=== PATIENT | male | born 1930 | race Caucasian/White ===

== ENCOUNTER → 2016-09-07 | Outpatient (CLI) | payer MEDICARE, BC ==
[~2016-09-07] MED LIST: ALEVE 220MG220 MG PO; ALMACONE 360 M360 ML PO; AMOXICILLIN 8751 TAB PO; ASPIR-LOW81 MG PO; ASPIRIN 81M81 MG/TA2 PO; BETAMETHASONE D15 G1 TP; CLOPIDOGREL PO; COUMADIN 22.5 MG/TAB PO; COUMADIN 5MG5 MG/TAB PO; COUMADIN PO; DULCOLAX S10 MG/SUPP RC; GOOD NEIGH1200 MG/15 PO; IMODIUM 2MG CAPS2 MG PO; LASIX 40MG TABL40 MG PO; LIPITOR20 MG PO; LIPITOR40 MG PO; MEDROL 4MG DOSPA4 MG PO; METOPROLOL PO; MIRALAX PA17 GM/Dose PO; NORCO 325 MG-51 TAB PO; PAXIL 10MG10 MG PO; REMERON 15M15 MG/TA1 PO; RT ADVAIR 228 DISKUS IH; TAMIFLU 75MG75 MG PO; TOPROL XL 50MG50 MG PO; TYLENOL 325MG325 MG PO; TYLENOL SU650 MG/SUP RC; ULTRAM 50MG TAB50 MG PO; ZOLOFT 100MG100 MG PO
== END ==
LOC: ZCOL.LAB 15:30
DX: R06.02 Shortness of breath (principal)

== ENCOUNTER 2017-05-03 05:47 | Observation (INO) | payer MEDICARE, BC ==
[~2017-05-03] VITALS: Ht 188 cm; Wt 112.5 kg
[~2017-05-03 05:47] MED LIST changes: -ALMACONE 360 M360 ML PO; -BETAMETHASONE D15 G1 TP; -DULCOLAX S10 MG/SUPP RC; -GOOD NEIGH1200 MG/15 PO; -IMODIUM 2MG CAPS2 MG PO; -LASIX 40MG TABL40 MG PO; -MEDROL 4MG DOSPA4 MG PO; -MIRALAX PA17 GM/Dose PO; -RT ADVAIR 228 DISKUS IH; -TYLENOL SU650 MG/SUP RC
[2017-05-03 06:19] LABS: BASO # 0.1 (0.0-0.2); BASO % 0.6 % (0.0-2.0); EOS # 0.1 (0.0-0.7); EOS % 1.2 % (0-4.0); GRAN # 6.4 (1.4-6.5); HEMATOCRIT 43.1 % (42.0-52.0); HEMOGLOBIN 14.2 g/dl (13.5-18.0); LYMPH # 1.2 (1.2-3.4); LYMPH % 14.2 % (20.0-51.0); MEAN CELL VOLUME 94 fl (80.0-100.0); MEAN CORPUSCULAR HEMOGLOBIN 31 pg (27.0-31.0); MEAN CORPUSCULAR HGB CONC 33 g/dl (33.0-37.0); MEAN PLATELET VOLUME 9.8 fl (7.4-10.4); MONO # 0.8 (0.1-0.6); MONO % 9.7 % (1.7-9.3); PLATELET COUNT 145 K/mm3 (130-400); WHITE BLOOD COUNT 8.7 K/mm3 (4.8-10.8)
[2017-05-03 06:28] LABS: ALBUMIN 3.9 gm/dL (3.5-5.0); BILIRUBIN,TOTAL 2.4 mg/dL (0.0-1.0); CALCIUM 8.9 mg/dL (8.4-10.2); CREATININE, serum 1.29 mg/dL (0.66-1.25); POTASSIUM 4.6 mmol/L (3.4-5.0); TOTAL PROTEIN 6.8 gm/dL (6.4-8.2)
[2017-05-03 06:40] LABS: TROPONIN-I 0.021 ng/mL (0.000-0.034)
[2017-05-03 07:02] LABS: PROTHROMBIN TIME 23.1 SECONDS (9.7-12.8)
[2017-05-03] MEDS ORDERED: TOPROL XL 50MG50 MG PO (07:15)
[2017-05-03] MEDS ORDERED: LIPITOR20 MG PO (07:16)
[2017-05-03] MEDS ORDERED: COUMADIN 5MG5 MG/TAB PO (07:18)
[2017-05-03] MEDS ORDERED: COUMADIN 22.5 MG/TAB PO (07:19)
[2017-05-03] MEDS ORDERED: LASIX 40MG TABL40 MG PO (07:20)
[2017-05-03] MEDS ORDERED: REMERON 15M15 MG/TA1 PO (07:21)
[2017-05-03] MEDS ORDERED: ZOLOFT 100MG100 MG PO (07:21)
[2017-05-03] MEDS ORDERED: BETAMETHASONE D15 G1 TP (07:22)
[2017-05-03] MEDS ORDERED: GOOD NEIGH1200 MG/15 PO (09:13)
[2017-05-03] MEDS ORDERED: ALMACONE 360 M360 ML PO (09:13)
[2017-05-03] MEDS ORDERED: TYLENOL SU650 MG/SUP RC (09:14)
[2017-05-03] MEDS ORDERED: DULCOLAX S10 MG/SUPP RC (09:14)
[2017-05-03] MEDS ORDERED: MIRALAX PA17 GM/Dose PO (09:15)
[2017-05-03] MEDS ORDERED: TYLENOL 325MG325 MG PO (09:15)
[2017-05-03] MEDS ORDERED: IMODIUM 2MG CAPS2 MG PO (09:16)
[2017-05-03 11:24] VITALS: BP 117/66; PULSE 80; TEMP 98
[2017-05-03 15:36] VITALS: BP 106/58; PULSE 59; TEMP 98.1
[2017-05-03 15:40] VITALS: BP 106/58; PULSE 61; TEMP 98.1
[2017-05-03 17:07] LABS: ARTERIAL BLD GAS TCO2 CT 25.9; ARTERIAL BLOOD GAS BASE EXCESS 0.3 (-2-2); ARTERIAL BLOOD GAS HCO3 24.7 meq/L (22-26); ARTERIAL BLOOD GAS PHT 7.42 C (7.35-7.45); ARTERIAL BLOOD GAS PO2 61.8 mmHg (80-100); ARTERIAL BLOOD GAS PO2T 61.8 (80-100); ARTERIAL BLOOD GAS pH 7.42 (7.35-7.45); OXYHEMOGLOBIN 90.5 %
[2017-05-03 17:08] LABS: ATS? YES
[2017-05-03 20:37] VITALS: BP 123/53; PULSE 83; TEMP 98
[2017-05-03 22:42] VITALS: BP 96/52; PULSE 69; TEMP 97.8
[2017-05-04 03:47] VITALS: BP 109/53; PULSE 64; TEMP 98.6
[2017-05-04 06:34] LABS: BASO % 0.3 % (0.0-2.0); EOS % 0.1 % (0-4.0); GRAN # 6.2 (1.4-6.5); GRAN % 78.6 % (42.2-75.2); HEMATOCRIT 37.3 % (42.0-52.0); LYMPH % 12.6 % (20.0-51.0); MEAN CELL VOLUME 95 fl (80.0-100.0); MEAN CORPUSCULAR HEMOGLOBIN 31 pg (27.0-31.0); MEAN CORPUSCULAR HGB CONC 32 g/dl (33.0-37.0); MEAN PLATELET VOLUME 10.7 fl (7.4-10.4); MONO # 0.6 (0.1-0.6); MONO % 7.8 % (1.7-9.3); PLATELET COUNT 114 K/mm3 (130-400); RED BLOOD COUNT 3.91 M/mm3 (4.20-5.60); REDCELL DISTRIBUTION WIDTH-CV 14.1 % (11.5-14.5); WHITE BLOOD COUNT 7.9 K/mm3 (4.8-10.8)
[2017-05-04 06:36] LABS: INR 2.5 (0.8-3.0); PROTHROMBIN TIME 28.2 SECONDS (9.7-12.8)
[2017-05-04 06:42] LABS: CALCIUM 8.3 mg/dL (8.4-10.2); CREATININE, serum 1.17 mg/dL (0.66-1.25); POTASSIUM 4.5 mmol/L (3.4-5.0)
[2017-05-04 06:54] LABS: TROPONIN-I 0.028 ng/mL (0.000-0.034)
[2017-05-04 08:32] VITALS: BP 117/62; PULSE 63; TEMP 98.2
[2017-05-04 12:31] VITALS: BP 108/66; PULSE 61; TEMP 97.4
[2017-05-04] MEDS ORDERED: RT ADVAIR 228 DISKUS IH (14:19)
[2017-05-04] MEDS ORDERED: MEDROL 4MG DOSPA4 MG PO (14:19)
== END 2017-05-04 15:30 | disposition home or self-care (01) ==
LOC: COL.ER 05:47 → MEDICAL 06:57
PROVIDERS: Emergency Medicine; Physician Assistant
DX: R07.9 Chest pain, unspecified (principal); I08.0 Rheumatic disorders of both mitral and aortic valves; I25.10 Atherosclerotic heart disease of native coronary artery without angina pectoris; Z95.5 Presence of coronary angioplasty implant and graft; I11.0 Hypertensive heart disease with heart failure; I50.30 Unspecified diastolic (congestive) heart failure; R09.02 Hypoxemia; I49.5 Sick sinus syndrome; J44.9 Chronic obstructive pulmonary disease, unspecified; I48.91 Unspecified atrial fibrillation; E78.5 Hyperlipidemia, unspecified; Z87.891 Personal history of nicotine dependence; G47.33 Obstructive sleep apnea (adult) (pediatric); Z95.0 Presence of cardiac pacemaker; Z79.01 Long term (current) use of anticoagulants
CPT/HCPCS: G0378; J1956; J7030; J7512

== ENCOUNTER → 2017-05-29 | Outpatient (CLI) | payer MEDICARE, BC ==
[~2017-05-29] MED LIST changes: +ALMACONE 360 M360 ML PO; +BETAMETHASONE D15 G1 TP; +DULCOLAX S10 MG/SUPP RC; +GOOD NEIGH1200 MG/15 PO; +IMODIUM 2MG CAPS2 MG PO; +LASIX 40MG TABL40 MG PO; +MEDROL 4MG DOSPA4 MG PO; +MIRALAX PA17 GM/Dose PO; +RT ADVAIR 228 DISKUS IH; +TYLENOL SU650 MG/SUP RC
[2017-05-29 11:33] LABS: CALCIUM 8.9 mg/dL (8.4-10.2); CREATININE, serum 1.41 mg/dL (0.66-1.25); POTASSIUM 3.9 mmol/L (3.4-5.0)
[2017-05-29 11:45] LABS: TROPONIN-I 0.031 ng/mL (0.000-0.034)
== END ==
LOC: ZCOL.LAB 11:07
PROVIDERS: Nurse Practitioner Family
DX: R07.9 Chest pain, unspecified (principal)

== ENCOUNTER 2017-07-22 02:38 | Emergency (ER) | payer MEDICARE, BC ==
[~2017-07-22] VITALS: Ht 188 cm; Wt 80.0 kg
[~2017-07-22 02:38] MED LIST changes: +NITROSTAT0.4 MG/TAB SL
[2017-07-22 02:39] VITALS: TEMP 97.5
[2017-07-22 03:07] LABS: BASO # 0.1 (0.0-0.2); BASO % 0.7 % (0.0-2.0); EOS # 0.2 (0.0-0.7); EOS % 2.7 % (0-4.0); GRAN # 5.4 (1.4-6.5); GRAN % 75.1 % (42.2-75.2); LYMPH % 14.1 % (20.0-51.0); MEAN CELL VOLUME 95 fl (80.0-100.0); MEAN CORPUSCULAR HGB CONC 32 g/dl (33.0-37.0); MEAN PLATELET VOLUME 9.5 fl (7.4-10.4); MONO # 0.5 (0.1-0.6); PLATELET COUNT 167 K/mm3 (130-400); RED BLOOD COUNT 3.51 M/mm3 (4.20-5.60); WHITE BLOOD COUNT 7.2 K/mm3 (4.8-10.8)
[2017-07-22 03:08] LABS: HEMATOCRIT 33.2 % (42.0-52.0); HEMOGLOBIN 10.6 g/dl (13.5-18.0); MEAN CORPUSCULAR HEMOGLOBIN 30 pg (27.0-31.0)
[2017-07-22 03:12] LABS: INR 3.8 (0.8-3.0); PROTHROMBIN TIME 44.6 SECONDS (9.7-12.8)
[2017-07-22 03:15] LABS: PARTIAL THROMBOPLASTIN TIME 47.6 SECONDS (26.0-37.0)
[2017-07-22 03:17] LABS: ADJUSTED CALCIUM 9.2 mg/dL (8.4-10.2); ALBUMIN 3.3 gm/dL (3.5-5.0); BILIRUBIN,TOTAL 1.6 mg/dL (0.0-1.0); CALCIUM 8.6 mg/dL (8.4-10.2); CREATININE, serum 1.06 mg/dL (0.66-1.25); POTASSIUM 4.6 mmol/L (3.4-5.0); TOTAL PROTEIN 6.1 gm/dL (6.4-8.2)
[2017-07-22] MEDS ORDERED: ASPIRIN 81M81 MG/TA2 PO (04:56)
[2017-07-22 05:15] LABS: COLLECTION METHOD CLEAN CATCH
[2017-07-22 05:23] LABS: MUCOUS Present /lpf; PH 6 (5-8); SQUAMOUS EPITHELIAL None Seen /hpf; URINE APPEARANCE Hazy; URINE BACTERIA None Seen /hpf; URINE BILIRUBIN Negative (NEGATIVE); URINE BLOOD 2+ (NEGATIVE); URINE COLOR Yellow; URINE GLUCOSE Negative (NEGATIVE); URINE KETONE Negative (NEGATIVE); URINE LEUKOCYTE ESTERASE 3+ (NEGATIVE); URINE PROTEIN(semi-quant) 2+ (NEGATIVE); URINE RBC >50 /hpf; URINE UROBILINOGEN >=4.0 mg/dL (NEGATIVE)
[2017-07-22 05:31] LABS: ARTERIAL BLD GAS O2 SATURATION 94.8 % (92-100); ARTERIAL BLD GAS TCO2 CT 24.3; ARTERIAL BLOOD GAS BASE EXCESS -1.3 (-2-2); ARTERIAL BLOOD GAS HCO3 23.1 meq/L (22-26); ARTERIAL BLOOD GAS PHT 7.41 C (7.35-7.45); ARTERIAL BLOOD GAS PO2 81.9 mmHg (80-100); ARTERIAL BLOOD GAS PO2T 81.9 (80-100); ARTERIAL BLOOD GAS pH 7.41 (7.35-7.45); OXYHEMOGLOBIN 93.8 %
[2017-07-22 05:31] LABS: URINE WBC 20-50 /hpf
[2017-07-22 05:32] LABS: ALLEN TEST YES; ALLENS TEST RESULT PASS; ATS? YES
[2017-07-22] MEDS ORDERED: LASIX 40MG TABL40 MG PO (05:45)
[2017-07-22] MEDS ORDERED: GENTLE LAXATIVE10 MG RC (05:54)
[2017-07-22] MEDS ORDERED: OMNICEF 300MG300 MG PO (05:54)
[2017-07-22] MEDS ORDERED: PLAVIX 75MG TAB75 MG PO (05:55)
[2017-07-22] MEDS ORDERED: COUMADIN 3MG3 MG/TAB PO (05:56)
[2017-07-22] MEDS ORDERED: KLOR-CON SPRIN10 MEQ PO (05:57)
[2017-07-22] MEDS ORDERED: LEADER CLE17 GM/Dose PO (05:58)
[2017-07-22 06:15] LABS: TROPONIN-I 0.032 ng/mL (0.000-0.034)
[2017-07-22 08:00] VITALS: BP 106/63; PULSE 62
== END 2017-07-22 08:08 | disposition home or self-care (01) ==
LOC: COL.ER 02:38
PROVIDERS: Emergency Medicine
DX: S30.1XXA Contusion of abdominal wall, initial encounter (principal); I11.0 Hypertensive heart disease with heart failure; I50.9 Heart failure, unspecified; I25.10 Atherosclerotic heart disease of native coronary artery without angina pectoris; E78.5 Hyperlipidemia, unspecified; J44.9 Chronic obstructive pulmonary disease, unspecified; Z86.79 Personal history of other diseases of the circulatory system; Z79.01 Long term (current) use of anticoagulants; Z79.02 Long term (current) use of antithrombotics/antiplatelets; Z79.82 Long term (current) use of aspirin; W18.39XA Other fall on same level, initial encounter; Z95.0 Presence of cardiac pacemaker; Y92.129 Unspecified place in nursing home as the place of occurrence of the external cause
CPT/HCPCS: J1940

== ENCOUNTER → 2017-07-28 | Outpatient (REF) ==
[~2017-07-28] MED LIST changes: +COUMADIN 3MG3 MG/TAB PO; +GENTLE LAXATIVE10 MG RC; +KLOR-CON SPRIN10 MEQ PO; +LEADER CLE17 GM/Dose PO; +OMNICEF 300MG300 MG PO; +PLAVIX 75MG TAB75 MG PO
[2017-07-28 11:44] LABS: COLLECTION METHOD CLEAN CATCH
[2017-07-28 12:11] LABS: MUCOUS Present /lpf; PH 6 (5-8); SQUAMOUS EPITHELIAL 0-2 /hpf; URINE APPEARANCE Clear; URINE BACTERIA None Seen /hpf; URINE BILIRUBIN Negative (NEGATIVE); URINE BLOOD Negative (NEGATIVE); URINE COLOR Yellow; URINE GLUCOSE Negative (NEGATIVE); URINE KETONE Negative (NEGATIVE); URINE LEUKOCYTE ESTERASE Trace (NEGATIVE); URINE PROTEIN(semi-quant) Negative (NEGATIVE); URINE UROBILINOGEN >=4.0 mg/dL (NEGATIVE)
== END ==
LOC: ZCOL.LAB 11:42
PROVIDERS: Internal Medicine
DX: R39.15 Urgency of urination (principal)

== ENCOUNTER → 2017-07-31 | Outpatient (REF) | LOC: ZCOL.LAB 13:54 | DX: Z01.89 Encounter for other specified special examinations (principal) ==